=== PATIENT | female | born 1945 | race Caucasian/White ===

== ENCOUNTER 2016-08-11 17:52 | Emergency (ER) | payer MEDICARE, BC ==
[2011-08-25 11:22] VITALS: BMI 24.3
[2016-08-11 18:22] LABS: BASOPHILS 0.3 % (0.0-2.0); EOSINOPHILS 1.1 % (0-7); HEMATOCRIT 42.2 % (36.0-48.0); HEMOGLOBIN 14.1 g/dL (12-16); IMMATURE GRANULOCYTES 0.2 % (0-5); LYMPHOCYTES 35.8 % (15-50); MCH 30.7 pg (26.0-34.0); MCHC 33.4 g/dL (31.0-37.0); MCV 91.7 fL (80.0-100.0); MEAN PLATELET VOLUME 10.3 fL (7.4-10.4); MONOCYTES 5.6 % (2-11); RDW 12.7 % (11.5-14.5); WBC 6.5 10x3/uL (4.8-10.8)
[2016-08-11 18:24] LABS: PLATELET COUNT 258 10x3/uL (130-400)
[2016-08-11 18:37] LABS: ALBUMIN 3.7 g/dL (3.4-5.0); ALKALINE PHOSPHATASE 80 U/L (46-116); ALT (SGPT) 29 U/L (10-68); AMYLASE - SERUM 72 U/L (25-115); BILIRUBIN - TOTAL 0.26 mg/dL (0.2-1.3); CALC OSMOLALITY 281 mosm/kg (275-300); CALCIUM 9.5 mg/dL (8.5-10.1); CARBON DIOXIDE 26.1 mmol/L (21.0-32.0); CHLORIDE - SERUM 103 mmol/L (98-107); CREATININE - SERUM 0.8 mg/dL (0.6-1.3); GLUCOSE 162 mg/dL (74-106); LIPASE 197 U/L (73-393); POTASSIUM - SERUM 3.5 mmol/L (3.5-5.1); PROTEIN - SERUM 6.9 g/dL (6.4-8.2); SODIUM 139 mmol/L (136-145); UREA NITROGEN 13 mg/dL (7-18); eGFR NON AFRICAN AMERICAN 75 mL/min (90-120)
== END 2016-08-11 20:20 | disposition home or self-care (01) ==
LOC: D.ER 17:52
PROVIDERS: Emergency Medicine
DX: R11.10 Vomiting, unspecified (principal); G47.00 Insomnia, unspecified

== ENCOUNTER 2017-02-26 08:06 | Outpatient (CLI) | payer MEDICARE, BC ==
[2011-08-25 11:22] VITALS: BMI 24.3
== END 2017-02-26 11:30 ==
LOC: D.MAMMO 08:06
DX: Z12.31 Encounter for screening mammogram for malignant neoplasm of breast (principal)

== ENCOUNTER 2017-09-04 12:39 | Emergency (ER) | payer MEDICARE, BC ==
[2011-08-25 11:22] VITALS: BMI 24.3
== END 2017-09-04 15:28 | disposition home or self-care (01) ==
LOC: D.ER 12:39
DX: R51 Headache (principal)

== ENCOUNTER → 2019-08-20 14:45 | Outpatient (CLI) | payer MEDICARE, BC ==
[2011-08-25 11:22] VITALS: BMI 24.3
[2019-08-20 16:57] LABS: APPEARANCE TURBID (CLEAR); BILIRUBIN NEGATIVE (NEGATIVE); COLOR YELLOW (YELLOW); GLUCOSE NEGATIVE (NEGATIVE); KETONE NEGATIVE (NEGATIVE); NITRITE POSITIVE (NEGATIVE); PROTEIN 1+ mg/dL (NEGATIVE); UROBILINOGEN NORMAL (NORMAL)
[2019-08-20 17:14] LABS: BACTERIA MANY /hpf (NEGATIVE); EPITHELIAL CELLS 0-5 /hpf (0-5); RED CELLS - URINE 0-5 /hpf (0-5); WHITE CELLS - URINE >50 /hpf (NEGATIVE)
== END | disposition home or self-care (01) ==
LOC: D.LABREF 14:45
PROVIDERS: ATTEND Family Medicine
DX: N39.0 Urinary tract infection, site not specified (principal)